=== PATIENT | male | born 1940 | race Caucasian/White ===

== ENCOUNTER 2019-11-22 06:37 | Emergency (ER) | payer OTHER, MEDICARE ==
[2019-11-22] MEDS: Lidocaine 2% Jelly 10 ML Urojet MUCMEM ONE (08:18)
[2019-11-22] MEDS: Lidocaine 2% Jelly 5 ML Urojet ONE (09:21)
--- NOTE | 2019-11-22 10:54 | EDM.PDOC ---
ED HPI GENERAL MEDICAL PROBLEM - General Chief Complaint: Genitourinary Problem Stated Complaint: UNABLE TO URINATE Time Seen by Provider: 11/22/19 09:00 Source of Information: Reports: Patient, RN History Limitations: Reports: No Limitations - History of Present Illness INITIAL COMMENTS - FREE TEXT/NARRATIVE: Patient has had difficulty urinating since yesterday. Lower abd pain, denies CVA tenderness, states he has chronic lower back pain. Denies SOB, CP, bloody stool or urine. Scan shows >700ml urine, cath ordered. Onset Date: 11/21/19 Location: Reports: Abdomen Quality: Reports: Pressure Severity: Mild Improves with: Reports: None Worsens with: Reports: None Associated Symptoms: Reports: No Other Symptoms Lower Abdomen Pain Score (Numeric/FACES): 9 - Related Data Allergies Allergy/AdvReac Type Severity Reaction Status Date / Time No Known Allergies Allergy Verified 11/22/19 08:03 Home Meds: Home Meds Lovastatin 10 mg PO DAILY 11/22/19 [History] Tamsulosin [Tamsulosin 24 Hr] 0.4 mg PO BEDTIME 11/22/19 [History] hydroCHLOROthiazide [Hydrochlorothiazide] 12.5 mg PO DAILY 11/22/19 [History] Past Medical History HEENT History: Reports: Impaired Vision Cardiovascular History: Reports: High Cholesterol, Hypertension Genitourinary History: Reports: Retention, Urinary Other Genitourinary History: Unable to urinate, never had this problem in the past - Past Surgical History GI Surgical History: Reports: Appendectomy, Hernia, Inguinal Social & Family History - Family History Family Medical History: Noncontributory - Tobacco Use Smoking Status *Q: Never Smoker Second Hand Smoke Exposure: No - Caffeine Use Caffeine Use: Reports: Coffee - Alcohol Use Days Per Week of Alcohol Use: 6 Number of Drinks Per Day: 2 Total Drinks Per Week: 12 - Recreational Drug Use Recreational Drug Use: No ED ROS GENERAL - Review of Systems Review Of Systems: See Below Constitutional: Reports: No Symptoms HEENT: Reports: No Symptoms Respiratory: Reports: No Symptoms Cardiovascular: Reports: No Symptoms Endocrine: Reports: No Symptoms GI/Abdominal: Reports: Abdominal Pain : Reports: Urinary Retention Musculoskeletal: Reports: No Symptoms Skin: Reports: No Symptoms Neurological: Reports: No Symptoms Psychiatric: Reports: No Symptoms ED EXAM, RENAL/ - Physical Exam Exam: See Below Exam Limited By: No Limitations General Appearance: Alert, No Apparent Distress Head: Atraumatic Neck: Normal Inspection, Full Range of Motion Respiratory/Chest: No Respiratory Distress Cardiovascular: No Edema, Tachycardia GI/Abdominal: Normal Bowel Sounds, Soft, Tender Back Exam: Normal Inspection, Full Range of Motion. No: CVA Tenderness (R), CVA Tenderness (L) Extremities: Normal Inspection Neurological: Alert, Oriented, No Motor/Sensory Deficits Psychiatric: Normal Affect, Normal Mood Skin Exam: Warm, Dry, Intact Course - Vital Signs Last Recorded V/S: Last Vital Signs Temp 99.7 F 11/22/19 08:19 Pulse 97 11/22/19 08:19 Resp 16 11/22/19 08:19 BP 161/86 H 11/22/19 08:19 Pulse Ox 97 11/22/19 08:19 - Orders/Labs/Meds Orders: Active Orders 24 hr Category Date Time Status Reina Catheter Insertion [Insert Urinary Catheter] [OM. Care 11/22/19 07:33 Ordered PC] Stat Urinary Catheter Assessment [RC] ASDIRECTED Care 11/22/19 07:34 Active Labs: Laboratory Tests 11/22/19 11/22/19 11/22/19 Range/Units 08:18 09:05 09:05 WBC 17.0 H (4.0-11.0) K/uL RBC 4.82 (4.50-6.50) M/uL Hgb 15.0 (13.0-18.0) g/dL Hct 42.8 (40.0-54.0) % MCV 89 (76-96) fL MCH 31.1 (27.0-32.0) pg MCHC 35.0 (31.0-35.0) g/dL RDW 13.3 (11.0-16.0) % Plt Count 127 L (150-400) K/uL MPV 13.0 H (6.0-10.0) fL Neut % (Auto) 84.7 H (45.0-70.0) % Lymph % (Auto) 4.0 L (20.0-40.0) % Holmes % (Auto) 10.8 H (3.0-10.0) % Eos % (Auto) 0.4 L (1.0-5.0) % Baso % (Auto) 0.1 (0.0-0.5) % Neut # (Auto) 14.37 H (2.00-7.50) K/uL Lymph # (Auto) 0.68 L (1.50-4.00) K/uL Holmes # (Auto) 1.84 H (0.20-0.80) K/uL Eos # (Auto) 0.06 (0.04-0.40) K/uL Baso # (Auto) 0.02 (0.02-0.10) K/uL Sodium 142 (136-145) mmol/L Potassium 3.9 (3.5-5.1) mmol/L Chloride 103 (98-107) mmol/L Carbon Dioxide 29.5 (21.0-32.0) mmol/L Anion Gap 13.4 (5.0-15.0) mmol/L BUN 20 (8-26) mg/dL Creatinine 1.23 (0.70-1.30) mg/dL Est Cr Clr Drug Dosing 53.45 mL/min Estimated GFR (MDRD) 57 L (>60) MLS/MIN BUN/Creatinine Ratio 16.3 (6-25) Glucose 132 H (74-100) mg/dL Calcium 8.8 (8.5-10.1) mg/dL Total Bilirubin 0.7 (0.0-1.0) mg/dL AST 17 (15-37) U/L ALT 24 (12-78) U/L Alkaline Phosphatase 83 (46-116) U/L Total Protein 7.4 (6.4-8.2) g/dL Albumin 3.7 (3.4-5.0) g/dL Globulin 3.7 (2.2-4.2) g/dL Albumin/Globulin Ratio 1.0 (0.8-2.0) Urine Color Yellow Urine Appearance Clear (CLEAR) Urine pH 5.5 (5.0-8.0) Ur Specific Donalds 1.020 (1.003-1.030) Urine Protein Negative (NEGATIVE) mg/dL Urine Glucose (UA) Negative (NEGATIVE) mg/dL Urine Ketones 15 H (NEGATIVE) mg/dL Urine Occult Blood Moderate H (NEGATIVE) Urine Nitrite Negative (NEGATIVE) Urine Bilirubin Negative (NEGATIVE) Urine Urobilinogen 0.2 (0.2-1.0) E.U./dL Ur Leukocyte Esterase Negative (NEGATIVE) Urine RBC 40-50 H /HPF Urine WBC 0-5 H /HPF Ur Squamous Epith Cells Few /HPF Urine Mucus Few /HPF Meds: Medications Discontinued Medications Generic Name Dose Route Start Last Admin Trade Name Beto PRN Reason Stop Dose Admin Lidocaine HCl Confirm 11/22/19 08:15 11/22/19 09:21 Xylocaine 2% Jelly Administered 11/22/19 08:16 Not Given Dose 5 ml .ROUTE .STK-MED ONE Lidocaine HCl 10 ml 11/22/19 08:15 11/22/19 08:18 Xylocaine 2% Jelly MUCMEM 11/22/19 08:16 10 ml ONETIME ONE Administration Departure - Departure Time of Disposition: 10:45 Disposition: Home, Self-Care 01 Condition: Good Clinical Impression: Urinary retention - Discharge Information *PRESCRIPTION DRUG MONITORING PROGRAM REVIEWED*: Not Applicable *COPY OF PRESCRIPTION DRUG MONITORING REPORT IN PATIENT SHAREE: Not Applicable Instructions: Indwelling Urinary Catheter Care, Adult, [id number], Acute Urinary Retention, Male, [id number] Referrals: PCP,None [Primary Care Provider] - Forms: ED Department Discharge Additional Instructions: Keep urinary catheter in place until follow up with regular provider. Follow up with your regular provider this week. Call with any questions. Sepsis Event Note (ED) - Focused Exam Vital Signs: Vital Signs Temp Pulse Resp BP Pulse Ox 11/22/19 08:19 99.7 F 97 16 161/86 H 97 - My Orders Last 24 Hours: My Active Orders 11/22/19 07:33 Reina Catheter Insertion [Insert Urinary Catheter] [OM.PC] Stat 11/22/19 07:34 Urinary Catheter Assessment [RC] ASDIRECTED - Assessment/Plan Last 24 Hours: My Active Orders 11/22/19 07:33 Reina Catheter Insertion [Insert Urinary Catheter] [OM.PC] Stat 11/22/19 07:34 Urinary Catheter Assessment [RC] ASDIRECTED
== END 2019-11-22 10:30 | disposition home or self-care (01) ==
LOC: LB.ED 06:37
DX: R33.9 Retention of urine, unspecified (principal); I10 Essential (primary) hypertension; E78.00 Pure hypercholesterolemia, unspecified; Z90.49 Acquired absence of other specified parts of digestive tract; Z79.899 Other long term (current) drug therapy
CPT/HCPCS: 36415; 51702; 51798; 80053; 81001; 85025; 99283